=== PATIENT | female | born 1935 | race Caucasian/White ===

== ENCOUNTER 2016-09-03 18:30 | Emergency (ER) | payer MEDICARE ==
[2016-09-03] MEDS ORDERED: Sodium Chloride 0.9% 1000 ML 1,000 ML IV SCH (19:15)
[2016-09-03] MEDS ORDERED: Sodium Chloride 0.9% 1000 ML 1,000 ML ONE (19:17)
[2016-09-03 19:28] LABS: BASOPHIL % 0.7 % (0.0-0.4); Eosinophil % 3.4 % (0.00-5.0); Granulocytes % 56.2 % (36.0-66.0); Lymphocytes % 32.6 % (24.0-44.0); Mean Cell Volume 96.2 fl (78-100); Mean Corpuscular Hemoglobin 31.6 pg (26-32); Mean Platelet Volume 11.1 fl (6-9.5); Monocytes % 7.1 % (0.0-12.0); Platelet Count 188 K/mm3 (150-450); Red Blood Count 3.73 M/mm3 (4.1-5.4); White Blood Count 11.5 K/mm3 (4.0-10.5)
--- NOTE | 2016-09-03 19:31 | ERPHSYRPT ---
- History of Present Illness Time Seen by Provider: 09/03/16 18:53 Source: patient Exam Limitations: clinical condition Patient Subjective Stated Complaint: pt states she got INR level checked today and Dr. Pérez instructed her to come to ER due to abnormal level. pt states she did have a nosebleed today thats why she got her INR level checked. Triage Nursing Assessment: pt pink, warm, dry. nares clear at this time. denies black stools. Physician History: PATIENT WITH HISTORY OF ATRIAL FIBRILLATION, HAD LAB DRAW OUTPATIENT INR, WITH NO CLOT DETECTED AND GIVEN INSTRUCTIONS FROM FAMILY PHYSICIAN TO FOLLOWUP IN EMERGENCY. PATIENT COMPLAINED OF PROLONGED NOSEBLEED TODAY. Timing/Duration: today Severity: mild Associated Symptoms: other (NOSE BLEED) Allergies/Adverse Reactions: atenolol [From Tenormin] Allergy (Verified 09/03/16 18:47) hydrocortisone Allergy (Verified 09/03/16 18:47) tetanus toxoid, adsorbed Allergy (Verified 09/03/16 18:47) Home Medications: Aspirin [Aspirin EC] 81 mg PO DAILY 09/03/16 [History] Atorvastatin Calcium [Lipitor] 20 mg PO HS 09/03/16 [History] Candesartan Cilexetil 2 mg PO HS 09/03/16 [History] Furosemide 20 mg PO DAILY 09/03/16 [History] Metoprolol Tartrate 50 mg [Lopressor 50 MG] 25 mg PO BID 09/03/16 [History ] Nitroglycerin 0.4 mg Tablet [Nitrostat 0.4 MG Tablet] 0.4 mg SL UD [History] Potassium Chloride 20 Meq [Klor-Con 20 MEQ] 20 meq PO DAILY 09/03/16 [History] Warfarin Sodium 1 mg [Coumadin 1 MG] 1.5 mg PO DAILY 09/03/16 [History] Hx Tetanus, Diphtheria Vaccination/Date Given: Yes (unknown) Hx Influenza Vaccination/Date Given: Yes Hx Pneumococcal Vaccination/Date Given: No Immunizations Up to Date: Yes - Review of Systems Constitutional: No Fever, No Chills Eyes: No Symptoms Ears, Nose, & Throat: Epistaxis Respiratory: No Symptoms, No Cough, No Dyspnea Cardiac: No Symptoms, No Chest Pain, No Edema, No Syncope Abdominal/Gastrointestinal: No Symptoms, No Abdominal Pain, No Nausea, No Vomiting, No Diarrhea Genitourinary Symptoms: No Symptoms, No Dysuria Musculoskeletal: No Symptoms, No Back Pain, No Neck Pain Skin: No Symptoms, No Rash Neurological: No Dizziness, No Focal Weakness, No Sensory Changes Psychological: No Symptoms Endocrine: No Symptoms All Other Systems: Reviewed and Negative - Past Medical History Pertinent Past Medical History: Yes Neurological History: No Pertinent History Cardiac History: Arrhythmia, Coronary Artery Disease, Hypertension Respiratory History: No Pertinent History Endocrine Medical History: Diabetes Type II Musculoskeletal History: Osteoarthritis Other Medical History: CABG X 3 10/18. - Past Surgical History Past Surgical History: Yes Cardiac: CABG Gastrointestinal: Appendectomy Musculoskeletal: Orthopedic Surgery Female Surgical History: Hysterectomy - Social History Smoking Status: Never smoker Exposure to second hand smoke: No Drug Use: none Patient Lives Alone: No - Nursing Vital Signs Nursing Vital Signs: Initial Vital Signs Temperature 97.7 F Pulse Rate 60 Respiratory Rate 16 Blood Pressure [Right Arm] 142/64 Pain Intensity 0 - Physical Exam General Appearance: no apparent distress, alert Eye Exam: PERRL/EOMI, eyes nml inspection Ears, Nose, Throat Exam: normal ENT inspection (THERE IS NO POST PHARYNGEAL BLEEDING), TMs normal, pharynx normal, moist mucous membranes, other (THERE IS DRIED BLOOD IN NASAL CAVITY, NO CLOT) Neck Exam: normal inspection, non-tender, supple, full range of motion Respiratory Exam: normal breath sounds, lungs clear, No respiratory distress Cardiovascular Exam: regular rate/rhythm, normal heart sounds, normal peripheral pulses Gastrointestinal/Abdomen Exam: soft, normal bowel sounds, other (NONTENDER), No tenderness, No mass Back Exam: normal inspection, normal range of motion, No CVA tenderness, No vertebral tenderness Extremity Exam: normal inspection, normal range of motion, pelvis stable Neurologic Exam: alert, oriented x 3, cooperative, normal mood/affect, nml cerebellar function, nml station & gait, sensation nml, No motor deficits Skin Exam: normal color, warm, dry, No rash Lymphatic Exam: No adenopathy SpO2 Interpretation: normal SpO2: 99 Oxygen Delivery: Room Air Ordered Tests: Active Orders 24 hr Category Date Time Status EKG-ER Only STAT Care 09/03/16 20:19 Active IV Insertion STAT Care 09/03/16 19:26 Active CBC W DIFF Stat Lab 09/03/16 19:15 Completed CMP Stat Lab 09/03/16 19:15 Completed PROTIME WITH INR Stat Lab 09/03/16 19:15 Completed Medication Summary Generic Name Dose Route Start Last Admin Trade Name Jordan PRN Reason Stop Dose Admin Sodium Chloride 1,000 mls @ 20 mls/hr 09/03/16 19:15 09/03/16 19:18 Sodium Chloride 0.9% 1000 Ml IV 10/03/16 19:14 20 mls/hr .Q24H VADIM Administration Discontinued Medications Generic Name Dose Route Start Last Admin Trade Name Jordan PRN Reason Stop Dose Admin Sodium Chloride Confirm 09/03/16 19:17 Sodium Chloride 0.9% 1000 Ml Administered 09/03/16 19:18 Dose 1,000 mls @ ud .ROUTE .STK-MED ONE Lab/Rad Data: Laboratory Result Diagrams 09/03/16 19:15 09/03/16 19:15 Laboratory Results 09/03/16 09/03/16 09/03/16 Range/Units 19:15 19:15 19:15 WBC (4.0-10.5) K/mm3 RBC (4.1-5.4) M/mm3 Hgb (12.0-16.0) gm/dl Hct (35-47) % MCV (78-100) fl MCH (26-32) pg MCHC (32-36) g/dl RDW (11.5-14.0) % Plt Count (150-450) K/mm3 MPV (6-9.5) fl Gran % (36.0-66.0) % Lymphocytes % (24.0-44.0) % Monocytes % (0.0-12.0) % Eosinophils % (0.00-5.0) % Basophils % (0.0-0.4) % Basophils # (0-0.4) INR (0.8-3.0) Sodium 138 (136-145) mEq/L Potassium 4.6 (3.5-5.1) mEq/L Chloride 103 (98-107) mEq/L Carbon Dioxide 27.2 (21-32) mEq/L Anion Gap 12.2 (5-15) MEQ/L BUN 20 (9-20) mg/dL Creatinine 1.36 H (0.55-1.30) mg/dl Estimated GFR 40 ML/MIN Glucose 124 H (70-110) MG/DL Calcium 8.9 (8.5-10.1) mg/dL Total Bilirubin 0.4 (0.2-1.0) mg/dL AST 25 (15-37) U/L ALT 20 (12-78) U/L Alkaline Phosphatase 91 (46-116) U/L Serum Total Protein 7.4 (6.4-8.2) gm/dL Albumin 3.5 (3.4-5.0) g/dL ABO Group O Rh Factor POSITIVE Antibody Screen NEGATIVE (NEGATIVE) 09/03/16 Range/Units 19:15 WBC 11.5 H (4.0-10.5) K/mm3 RBC 3.73 L (4.1-5.4) M/mm3 Hgb 11.8 L (12.0-16.0) gm/dl Hct 35.9 (35-47) % MCV 96.2 (78-100) fl MCH 31.6 (26-32) pg MCHC 32.9 (32-36) g/dl RDW 13.0 (11.5-14.0) % Plt Count 188 (150-450) K/mm3 MPV 11.1 H (6-9.5) fl Gran % 56.2 (36.0-66.0) % Lymphocytes % 32.6 (24.0-44.0) % Monocytes % 7.1 (0.0-12.0) % Eosinophils % 3.4 (0.00-5.0) % Basophils % 0.7 (0.0-0.4) % Basophils # 0.08 (0-0.4) INR (0.8-3.0) Sodium (136-145) mEq/L Potassium (3.5-5.1) mEq/L Chloride (98-107) mEq/L Carbon Dioxide (21-32) mEq/L Anion Gap (5-15) MEQ/L BUN (9-20) mg/dL Creatinine (0.55-1.30) mg/dl Estimated GFR ML/MIN Glucose (70-110) MG/DL Calcium (8.5-10.1) mg/dL Total Bilirubin (0.2-1.0) mg/dL AST (15-37) U/L ALT (12-78) U/L Alkaline Phosphatase (46-116) U/L Serum Total Protein (6.4-8.2) gm/dL Albumin (3.4-5.0) g/dL ABO Group Rh Factor Antibody Screen (NEGATIVE) - Progress Progress Note: 09/03/16 19:33 PATIENT WITH AN INR WITH NO CLOT DETECTED. PATIENT TRANSFUSED 2 UNITS OF FRESH FROZEN PLASMA OVER 2 HOURS 09/03/16 22:01 Discussed with : Other (DISCUSSED WITH DR ESPINOZA AT 2039 HOSPITAL[facility] ACCEPTS TRANSFER TO [facility]) - Departure Time of Disposition: 22:42 Departure Disposition: Transfer Clinical Impression: COUMADIN COAGULOPATHY Condition: Stable Critical Care Time: No Critical Care Time(excluding separately billable procedures): 30-74 minutes, __ _ minutes (50) Referrals: JEOVANY LILLY [Primary Care Provider] -
[2016-09-03 19:48] LABS: ALBUMIN 3.5 g/dL (3.4-5.0); ANION GAP 12.2 MEQ/L (5-15); BILIRUBIN,TOTAL 0.4 mg/dL (0.2-1.0); Carbon Dioxide 27.2 mEq/L (21-32); Potassium 4.6 mEq/L (3.5-5.1); Total Protein 7.4 gm/dL (6.4-8.2)
[2016-09-03 20:42] LABS: FFP TO INFUSE READY TO INFUSE
[2016-09-03 22:49] VITALS: BP 163/57; PULSE 75; O2SAT 98
== END 2016-09-03 23:02 | disposition short-term general hospital (02) ==
LOC: ED 18:30
DX: D68.9 Coagulation defect, unspecified (principal); Z79.01 Long term (current) use of anticoagulants; I25.10 Atherosclerotic heart disease of native coronary artery without angina pectoris; I10 Essential (primary) hypertension; E11.9 Type 2 diabetes mellitus without complications
CPT/HCPCS: 36000; 36415; 36430; 80053; 85025; 85384; 85385; 85610; 86850; 86900; 86901; 86931; 93005; 99284

== ENCOUNTER 2019-07-24 06:30 | Day surgery (SDC) | payer MEDICARE ==
[2019-07-24] MEDS ORDERED: Lactated Ringers 1,000 ML IV SCH (07:00)
[2019-07-24 07:03] LABS: Hematocrit 40.2 % (35-47); Hemoglobin 13.6 gm/dl (12.0-16.0); Mean Cell Volume 94.1 fl (78-100); Mean Corpuscular Hemoglobin 31.9 pg (26-32); Mean Corpuscular Hgb Concent. 33.8 g/dl (32-36); Mean Platelet Volume 11.1 fl (6-9.5); Platelet Count 269 K/mm3 (150-450); Red Blood Count 4.27 M/mm3 (4.1-5.4); Red Cell Distribution Width 14.6 % (11.5-14.0); White Blood Count 19.1 K/mm3 (4.0-10.5)
--- NOTE | 2019-07-24 07:52 | HP ---
DATE OF SURGERY: 07/24/2019 CHIEF COMPLAINT: Rectal bleeding. HISTORY OF PRESENT ILLNESS: The patient is an 84 year-old female who was recently hospitalized with thrombocytopenia. She has had intermittent bright red blood per rectum. She said this has been going on for a number of years. GI symptoms otherwise negative. She notes that for one week she had bright red blood per rectum with every bowel movement that turned the toilet bowel to a Monico-Aid color without clots. She is not currently having bright red blood per rectum. She does state that she has hemorrhoids that cause her no symptoms. PAST MEDICAL HISTORY: Thrombocytopenia. She sees Dr. Pires. Hypertension. Coronary artery disease with coronary artery bypass graft. Atrial fibrillation paroxysmal on Eliquis. PAST SURGICAL HISTORY: Hysterectomy. Cataracts. Thumb laceration. Coronary artery bypass graft. C-scope around ten years ago but patient unsure of exact time. MEDICATIONS: Eliquis. Lipitor. Metoprolol. Lasix. Prednisone. ALLERGIES: TETANUS. SOCIAL HISTORY: No tobacco. FAMILY HISTORY: No colorectal cancer, polyps. PHYSICAL EXAMINATION: HEENT: Intact. LUNGS: Nonlabored. HEART: Regular rate and rhythm. ABDOMEN: Nondistended, soft, nontender to palpation. ASSESSMENT AND PLAN: An 84 year-old female with bright red blood per rectum requiring colonoscopy. She was evaluated by hematology. Her platelet count was 200,000. She is holding her Eliquis for the procedure.
--- NOTE | 2019-07-24 10:18 | OP ---
SURGERY DATE/TIME: 07/24/2019 0905 PREOPERATIVE DIAGNOSIS: Bright red blood per rectum. POSTOPERATIVE DIAGNOSIS: Bright red blood per rectum, diverticulosis and multiple polyps. PROCEDURE: Colonoscopy with polypectomy. SURGEON: Judah Hooks M.D. ANESTHESIA: MAC. ESTIMATED BLOOD LOSS: 5 cc. COMPLICATIONS: None. SPECIMEN: Ascending colon polyp and sigmoid polyp. HISTORY: The patient is an 84 year-old female who reports bright red blood per rectum. She does endorse hemorrhoids also. Risks, benefits, alternatives to colonoscopy were discussed and the patient elected to proceed. FINDINGS: Very redundant looping colon. Technically very challenging. Two assistants holding pressure. The cecum was able to be reached. However the base of the cecum was unable to be cleaned out and completely visualized. There was a 7 mm polyp at the cecum which was removed with hot snare that was unable to be retrieved as it was at the base of the cecum 4 mm sessile polyp ascending colon, 3 mm hyperplastic appearing sessile polyp in the sigmoid. DESCRIPTION OF PROCEDURE: The patient was brought to endoscopy suite. MAC anesthesia was induced. She did have erythematous, flat lesions on the skin surrounding the anus. Digital rectal exam was normal. She did have external hemorrhoids in all three columns. Colonoscope was introduced and this was advanced to the cecum. She had a looping redundant colon that made things very difficult. Dual pressure was applied. The ileocecal valve was clearly visualized. There was a puddle in the base of the cecum that was unable to be evacuated. I just could not reach it with the scope. There is an 8 mm polyp in the cecum this was removed with hot snare satisfactorily. The polyp remained at the base of the cecum and was unable to be retrieved. Multiple attempts to reach the base were performed. Colonoscope is then withdrawn. There was a 4 mm sessile polyp at the ascending colon. There was mild diverticulosis in the sigmoid colon. There was a small 3 mm hyperplastic appearing polyp in the sigmoid colon. There were no significant internal hemorrhoids on retroflexion. The patient tolerated the procedure well. She was then taken to recovery in stable condition.
[2019-07-24 10:48] VITALS: O2SAT 100
[2019-07-24 11:14] VITALS: BP 112/50; PULSE 55
== END 2019-07-24 11:15 | disposition home or self-care (01) ==
LOC: SDC 06:30
PROVIDERS: ATTEND Surgery
DX: K62.5 Hemorrhage of anus and rectum (principal); K57.30 Diverticulosis of large intestine without perforation or abscess without bleeding; D12.2 Benign neoplasm of ascending colon; K64.4 Residual hemorrhoidal skin tags; E11.9 Type 2 diabetes mellitus without complications; I10 Essential (primary) hypertension; I25.10 Atherosclerotic heart disease of native coronary artery without angina pectoris; I48.91 Unspecified atrial fibrillation; Z79.01 Long term (current) use of anticoagulants; Z79.899 Other long term (current) drug therapy
CPT/HCPCS: 36415; 82962; 85027; 88305; 99100